=== PATIENT | female | born 1950 | race Caucasian/White ===

== ENCOUNTER 2019-06-09 10:12 | Inpatient (IN) ==
[2019-06-09] MEDS ORDERED: SODIUM CHLORIDE 0.9% 500 ML IV STA (10:38)
[2019-06-09 11:03] LABS: Basophils # 0.1 10*3/uL (0.0-0.2); Basophils % 0.7 % (0.0-0.8); Eosinophils # 0.1 10*3/uL (0.0-0.87); Eosinophils % 1.2 % (0.00-10.9); Hematocrit 32.8 VOL% (35.7-47.0); Hemoglobin 9.8 GM/DL (12.0-16.0); Immature Granulocytes % 0.5 %; Immature Granulocytes Absolute 0.05 #; Lymphocytes # 0.6 10*3/uL (1.4-4.0); Lymphocytes % 5.8 % (21.3-54.2); Mean Corpuscular HGB Conc 29.9 GM/DL (32-36); Mean Corpuscular Volume 80.4 FL (87-102); Mean Platelet Volume 10.5 FL (9.6-12.0); Monocytes % 6.7 % (1.7-12.7); Neutrophils % 85.1 % (38.7-73.9); Platelet Count 188 T/CUMM (130-400); Red Blood Count 4.08 MC/CUMM (3.8-5.5); Red Cell Distribution Width 16.9 % (9.3-17.3); White Blood Count 10.4 T/CUMM (4-12)
[2019-06-09 11:11] LABS: PT Patient Result 11.3 SECS (9.6-12.2)
[2019-06-09 11:27] LABS: Hypochromasia 1+; Ovalocytes Slight; Platelet Estimate Adequate
[2019-06-09 11:55] LABS: Albumin 2.1 G/DL (3.4-5.0); Bilirubin,Total 1.1 MG/DL (0.2-1.0); Osmolality,Calculated 268.5 MOS/KG (273-304); Total Protein 6.6 G/DL (6.4-8.3)
[2019-06-09] MEDS ORDERED: POTASSIUM CHLORIDE 20 MEQ TABLET PO STA (12:06)
[2019-06-09 12:25] LABS: Apearance,Urine Slightly Hazy (Clear); Bilirubin,Urine Negative (Negative); Blood, Urine Moderate mg/dL (Negative); Glucose,Urine (UA) Negative (Negative); Ketones,Urine 5 mg/dL (Negative); Mucus,Urine Occasional /LPF (Occasional); Nitrite,Urine Negative (Negative); Protein,Urine 30 MG/DL; RBC,Urine 30 /HPF (0-4); Squamous Epithelial Cell,Urine Occasional /HPF (0-10); Urine Color Amber (Yellow); Urine Specific Gravity 1.019 (1.001-1.035); WBC,Urine 32 /HPF (0-6)
[2019-06-09 12:31] LABS: Barbiturates Screen,Urine Positive (Negative); Benzodiazepines Screen,Urine Negative (Negative); Cannabinoid Screen,Urine Negative (Negative); Opiate Screen,Urine Positive (Negative); Phencyclidine Screen,Urine Negative (Negative)
[2019-06-09] MEDS ORDERED: cefTRIAXone 1,000 MG in SODIUM CHLORIDE 0.9% 100 ML IV STA (12:53)
[2019-06-09] MEDS ORDERED: ONDANSETRON 4 MG/2 ML VIAL IV PRN (15:20)
[2019-06-09] MEDS ORDERED: LACTULOSE 20 GM/30 ML UDCUP PO ONE (15:23)
[2019-06-09] MEDS: ENOXAPARIN 40 MG/0.4 ML SYRINGE SUBCUT SCH (15:30)
[2019-06-09] MEDS ORDERED: ENOXAPARIN 40 MG/0.4 ML SYRINGE ONE (15:33)
[2019-06-09 16:33] LABS: Risk Ratio 2.03; Thyroid Stimulating Hormone 3.16 uIU/ml (0.358-3.74); VLDL CHOLESTEROL 13.4 MG/DL
[2019-06-09 17:03] LABS: Hepatitis B Core IgM Quant 0.13 Index; Hepatitis B Surface Ag Quant < 0.10 Index; Hepatitis B Surface Ag Result Negative (Negative); Hepatitis C Virus Ab Quant 0.04 Index; Hepatitis C Virus Ab Result Negative (Negative)
[2019-06-09] MEDS: FAMOTIDINE 20 MG/2 ML VIAL IV SCH (17:26)
[2019-06-09] MEDS: SODIUM CHLOR 0.9% KCL 20 MEQ 20 MEQ/1,000 ML BAG IV SCH (17:26)
[2019-06-09] MEDS: NYSTATIN 500,000 UNIT/5 ML UDCUP SWISH/SWAL SCH ×2 (17:26→21:26)
[2019-06-09] MEDS ORDERED: ALBUTEROL 2.5 MG/3 ML NEB RESP TX PRN (19:00)
[2019-06-09] MEDS: PRIMIDONE 50 MG TABLET PEG SCH (21:24)
[2019-06-09] MEDS: BETHANECHOL 25 MG TABLET PEG SCH (21:24)
[2019-06-09] MEDS: CALCIUM (CARBONATE)/VITAMIN D 600 MG-400 UNIT TABLET PO SCH (21:25)
[2019-06-09] MEDS: MECLIZINE 25 MG TABLET PEG SCH (21:25)
[2019-06-10 05:32] LABS: Basophils # 0.1 10*3/uL (0.0-0.2); Basophils % 0.7 % (0.0-0.8); Eosinophils # 0.2 10*3/uL (0.0-0.87); Eosinophils % 1.7 % (0.00-10.9); Hematocrit 34.3 VOL% (35.7-47.0); Hemoglobin 10.2 GM/DL (12.0-16.0); Immature Granulocytes % 0.4 %; Immature Granulocytes Absolute 0.04 #; Lymphocytes # 0.9 10*3/uL (1.4-4.0); Lymphocytes % 9.5 % (21.3-54.2); Mean Corpuscular HGB Conc 29.7 GM/DL (32-36); Mean Corpuscular Volume 79.8 FL (87-102); Mean Platelet Volume 11.1 FL (9.6-12.0); Monocytes % 8.6 % (1.7-12.7); Neutrophils % 79.1 % (38.7-73.9); Platelet Count 195 T/CUMM (130-400); Red Cell Distribution Width 16.6 % (9.3-17.3); White Blood Count 9.7 T/CUMM (4-12)
[2019-06-10 05:46] LABS: Osmolality,Calculated 273.7 MOS/KG (273-304)
[2019-06-10] MEDS ORDERED: LEVOTHYROXINE 100 MCG TABLET PEG SCH (07:00)
[2019-06-10 07:23] LABS: Bilirubin,Direct 0.12 MG/DL (0.0-0.20); Bilirubin,Indirect 0.3 MG/DL (0.0-1.0); Bilirubin,Total 0.4 MG/DL (0.2-1.0); Total Protein 6.4 G/DL (6.4-8.3)
[2019-06-10] MEDS: FERROUS SULFATE 325 MG TABLET PO SCH (08:56)
[2019-06-10] MEDS: CALCIUM (CARBONATE)/VITAMIN D 600 MG-400 UNIT TABLET PO SCH ×2 (08:56→20:51)
[2019-06-10] MEDS: ENOXAPARIN 40 MG/0.4 ML SYRINGE SUBCUT SCH (08:56)
[2019-06-10] MEDS: POTASSIUM CHLORIDE 20 MEQ/15 ML UDCUP PEG SCH (08:56)
[2019-06-10] MEDS: BETHANECHOL 25 MG TABLET PEG SCH ×3 (08:57→20:51)
[2019-06-10] MEDS: MECLIZINE 25 MG TABLET PEG SCH ×3 (08:57→20:51)
[2019-06-10] MEDS: CITALOPRAM 40 MG TABLET PEG SCH (08:57)
[2019-06-10] MEDS: LEVOTHYROXINE 100 MCG TABLET PEG SCH (08:57)
[2019-06-10] MEDS ORDERED: POTASSIUM PHOSPHATE 15 MMOL in SODIUM CHLORIDE 0.9% 100 ML IV ONE (09:00)
[2019-06-10] MEDS ORDERED: POTASSIUM CHLORIDE 20 MEQ TABLET PO SCH (09:00)
[2019-06-10] MEDS: cefTRIAXone 1,000 MG in SYRINGE 1 EACH IV SCH (09:10)
[2019-06-10] MEDS: FAMOTIDINE 20 MG/2 ML VIAL IV SCH (09:16)
[2019-06-10] MEDS: NYSTATIN 500,000 UNIT/5 ML UDCUP SWISH/SWAL SCH ×4 (09:25→22:35)
[2019-06-10] MEDS: Mirabegron [Myrbetriq] 50 MG PO SCH (09:26)
[2019-06-10] MEDS ORDERED: CALCIUM ACETATE 667 MG CAPSULE PO SCH (12:00)
[2019-06-10] MEDS: ALBUTEROL 0.63 MG/3 ML NEB RESP TX SCH ×2 (12:38→19:17)
[2019-06-10] MEDS: SODIUM CHLOR 0.9% KCL 20 MEQ 20 MEQ/1,000 ML BAG IV SCH (14:49)
[2019-06-10] MEDS: ACETAMINOPHEN 325 MG TABLET PO PRN ×2 (17:12→21:20)
[2019-06-10] MEDS: PRIMIDONE 50 MG TABLET PEG SCH (20:51)
[2019-06-11] MEDS: ALBUTEROL 0.63 MG/3 ML NEB RESP TX SCH ×4 (00:11→19:11)
[2019-06-11] MEDS: SODIUM CHLOR 0.9% KCL 20 MEQ 20 MEQ/1,000 ML BAG IV SCH ×2 (00:55→20:31)
[2019-06-11] MEDS ORDERED: traZODone 50 MG TABLET PO ONE (01:37)
[2019-06-11 06:02] LABS: Basophils # 0.1 10*3/uL (0.0-0.2); Basophils % 0.5 % (0.0-0.8); Eosinophils # 0.3 10*3/uL (0.0-0.87); Eosinophils % 2.5 % (0.00-10.9); Hematocrit 34.2 VOL% (35.7-47.0); Hemoglobin 10.4 GM/DL (12.0-16.0); Immature Granulocytes % 0.4 %; Immature Granulocytes Absolute 0.04 #; Lymphocytes # 0.8 10*3/uL (1.4-4.0); Lymphocytes % 7.1 % (21.3-54.2); Mean Corpuscular HGB Conc 30.4 GM/DL (32-36); Mean Corpuscular Volume 78.3 FL (87-102); Mean Platelet Volume 11.9 FL (9.6-12.0); Neutrophils % 81.5 % (38.7-73.9); Platelet Count 194 T/CUMM (130-400); Red Blood Count 4.37 MC/CUMM (3.8-5.5); Red Cell Distribution Width 16.4 % (9.3-17.3)
[2019-06-11 07:39] LABS: Alanine Aminotransferase 334 U/L (13-56); Alkaline Phosphatase 126 U/L (45-117); Aspartate Amino Transferase 208 U/L (0-37); Bilirubin,Indirect 0.3 MG/DL (0.0-1.0); Bilirubin,Total < 0.39 MG/DL (0.2-1.0); Total Protein 6.5 G/DL (6.4-8.3)
[2019-06-11] MEDS ORDERED: POTASSIUM CHLORIDE IV ONE (08:00)
[2019-06-11] MEDS ORDERED: POTASSIUM PHOSPHATE IV ONE (08:00)
[2019-06-11] MEDS ORDERED: [UNRECOGNIZED DRUG - OTHER] IV ONE (08:00)
[2019-06-11] MEDS ORDERED: MAGNESIUM SULF IV ONE (08:00)
[2019-06-11] MEDS: POTASSIUM CHLORIDE 20 MEQ/15 ML UDCUP PEG SCH (08:53)
[2019-06-11] MEDS: ENOXAPARIN 40 MG/0.4 ML SYRINGE SUBCUT SCH (08:53)
[2019-06-11] MEDS: MECLIZINE 25 MG TABLET PEG SCH ×3 (08:53→20:18)
[2019-06-11] MEDS: LEVOTHYROXINE 100 MCG TABLET PEG SCH (08:53)
[2019-06-11] MEDS: CALCIUM (CARBONATE)/VITAMIN D 600 MG-400 UNIT TABLET PO SCH ×2 (08:53→20:18)
[2019-06-11] MEDS: CITALOPRAM 40 MG TABLET PEG SCH (08:53)
[2019-06-11] MEDS: FAMOTIDINE 20 MG/2 ML VIAL IV SCH (08:53)
[2019-06-11] MEDS: FERROUS SULFATE 325 MG TABLET PO SCH (08:53)
[2019-06-11] MEDS: ACETAMINOPHEN 325 MG TABLET PO PRN ×2 (08:53→22:45)
[2019-06-11] MEDS: NYSTATIN 500,000 UNIT/5 ML UDCUP SWISH/SWAL SCH ×4 (08:54→20:19)
[2019-06-11] MEDS: BETHANECHOL 25 MG TABLET PEG SCH ×3 (08:54→20:19)
[2019-06-11] MEDS ORDERED: predniSONE 20 MG TABLET PEG SCH (09:00)
[2019-06-11] MEDS: Mirabegron [Myrbetriq] 50 MG PO SCH (10:20)
[2019-06-11] MEDS: cefTRIAXone 1,000 MG in SYRINGE 1 EACH IV SCH (10:21)
[2019-06-11] MEDS: PRIMIDONE 50 MG TABLET PEG SCH (20:18)
[2019-06-12] MEDS: ALBUTEROL 0.63 MG/3 ML NEB RESP TX SCH ×2 (02:04→07:30)
[2019-06-12] MEDS: ACETAMINOPHEN 325 MG TABLET PO PRN ×2 (02:43→08:06)
[2019-06-12 05:42] LABS: Basophils # 0.1 10*3/uL (0.0-0.2); Basophils % 0.5 % (0.0-0.8); Eosinophils # 0.4 10*3/uL (0.0-0.87); Eosinophils % 3.2 % (0.00-10.9); Hematocrit 32.1 VOL% (35.7-47.0); Hemoglobin 9.6 GM/DL (12.0-16.0); Immature Granulocytes % 0.9 %; Lymphocytes # 1.3 10*3/uL (1.4-4.0); Lymphocytes % 11.7 % (21.3-54.2); Mean Corpuscular HGB Conc 29.9 GM/DL (32-36); Mean Corpuscular Volume 78.5 FL (87-102); Monocytes % 8.8 % (1.7-12.7); Neutrophils % 74.9 % (38.7-73.9); Platelet Count 205 T/CUMM (130-400); Red Blood Count 4.09 MC/CUMM (3.8-5.5); Red Cell Distribution Width 16.4 % (9.3-17.3); White Blood Count 11.2 T/CUMM (4-12)
[2019-06-12] MEDS: SODIUM CHLOR 0.9% KCL 20 MEQ 20 MEQ/1,000 ML BAG IV SCH (05:45)
[2019-06-12] MEDS: LEVOTHYROXINE 100 MCG TABLET PEG SCH (05:45)
[2019-06-12 06:05] LABS: Calcium 8.2 MG/DL (8.5-10.1); Osmolality,Calculated 274.5 MOS/KG (273-304)
[2019-06-12 06:06] LABS: Calcium 8.4 MG/DL (8.5-10.1); Osmolality,Calculated 276.4 MOS/KG (273-304)
[2019-06-12 06:09] LABS: Alanine Aminotransferase 242 U/L (13-56); Alkaline Phosphatase 114 U/L (45-117); Aspartate Amino Transferase 91 U/L (0-37); Bilirubin,Direct < 0.100 MG/DL (0.0-0.20); Bilirubin,Indirect 0.6 MG/DL (0.0-1.0); Total Protein 6.4 G/DL (6.4-8.3)
[2019-06-12 06:11] LABS: Ferritin 123.7 ng/ml (8-252)
[2019-06-12] MEDS: ALBUTEROL 2.5 MG/3 ML NEB RESP TX PRN ×2 (06:12→07:30)
[2019-06-12 07:54] VITALS: BP 170/99
[2019-06-12] MEDS: ENOXAPARIN 40 MG/0.4 ML SYRINGE SUBCUT SCH (08:05)
[2019-06-12] MEDS: BETHANECHOL 25 MG TABLET PEG SCH (08:06)
[2019-06-12] MEDS: POTASSIUM CHLORIDE 20 MEQ/15 ML UDCUP PEG SCH (08:06)
[2019-06-12] MEDS: MECLIZINE 25 MG TABLET PEG SCH (08:06)
[2019-06-12] MEDS: CALCIUM (CARBONATE)/VITAMIN D 600 MG-400 UNIT TABLET PO SCH (08:06)
[2019-06-12] MEDS: FAMOTIDINE 20 MG/2 ML VIAL IV SCH (08:06)
[2019-06-12] MEDS: CITALOPRAM 40 MG TABLET PEG SCH (08:06)
[2019-06-12] MEDS: NYSTATIN 500,000 UNIT/5 ML UDCUP SWISH/SWAL SCH (08:07)
[2019-06-12] MEDS: FERROUS SULFATE 325 MG TABLET PO SCH (08:07)
[2019-06-12] MEDS: cefTRIAXone 1,000 MG in SYRINGE 1 EACH IV SCH (08:07)
[2019-06-12] MEDS: Mirabegron [Myrbetriq] 50 MG PO SCH (08:07)
== END 2019-06-12 11:24 | disposition home health service (06) | DRG 689 ==
LOC: EDUNIT# → N.ED 10:12 → N.EDINP 15:20 → N.2E 16:41
PROVIDERS: ADMIT Internal Medicine; ATTEND Internal Medicine